=== PATIENT | female | born 1935 | race Two or more races ===

== ENCOUNTER 2022-07-13 22:29 | Inpatient (IN) | payer MEDICARE ==
[2022-07-14 01:33] VITALS: BMI 20.7
[2022-07-14] MEDS ORDERED: TETANUS, DIPHTHERIA TOX,ADULT (TDVAX) 0.5 ML VIAL IM ONE (01:47)
[2022-07-14] MEDS ORDERED: hydrALAZINE 20 MG/ML VIAL SLOW IVP PRN (01:47)
[2022-07-14] MEDS ORDERED: Ondansetron PF 4 MG/2 ML Vial IVP PRN (01:47)
[2022-07-14] MEDS ORDERED: Cyclobenzaprine 10 MG TAB PO PRN (01:49)
[2022-07-14] MEDS ORDERED: Morphine 4 MG/ML VIAL SLOW IVP PRN ×2 (02:03→19:30)
[2022-07-14] MEDS: Sodium Chloride 0.9% 1,000 ML IV SCH ×2 (02:27→17:41)
[2022-07-14] MEDS: Acetaminophen 500 MG TAB PO SCH ×4 (02:27→21:53)
[2022-07-14 03:41] LABS: SARS-CoV-2 NAA Rapid Test Not Detected (NotDetected)
[2022-07-14 06:35] LABS: #Eosinphils 0.1 thou/uL (0.0-0.7); #Lymphocytes 1.7 thou/uL (1.20-3.40); #Monocytes 0.6 thou/uL (0.11-0.59); #Neutrophils 7.4 thou/uL (1.40-6.50); %Basophils 0.4 % (0.0-1.0); %Eosinophils 1.2 % (0.0-10.0); %Lymphocytes 17.5 % (21.0-51.0); %Monocytes 6.3 % (0.0-10.0); %Neutrophils 74.6 % (42.0-75.0); Hemoglobin 13.1 g/dL (12.0-16.0); Mean Corpuscular HGB CONC 32.5 g/dL (32.0-36.0); Mean Corpuscular Hemoglobin 31.2 pg (27.0-31.0); Mean Corpuscular Volume 95.9 fl (78.0-98.0); Mean Platelet Volume 9.6 fL (7.4-10.4); Platelet Count 119 10x3/uL (130-400); RBC Distribution Width 11.9 % (11.5-14.5); Red Blood Cell (RBC) Count 4.21 mill/uL (4.20-5.40); White Blood Cell (WBC) Count 9.9 10x3/uL (4.8-10.8)
[2022-07-14 06:43] LABS: Anion Gap 11 mmol/L (10-20); BUN (Urea Nitrogen) 14 mg/dL (9.8-20.1); Calc. Creatinine Clearance 44 mL/min (70-130); Calcium 8.4 mg/dL (7.8-10.44); Carbon Dioxide 26 mmol/L (23-31); Chloride 102 mmol/L (98-107); Estimated GFR 80; Glucose 90 mg/dL (83-110); PTT 26.5 sec (22.9-36.1); Prothrombin Time 13.4 sec (12.0-14.7); Sodium 135 mmol/L (136-145)
[2022-07-14 06:49] LABS: Phosphorus 3.5 mg/dL (2.3-4.7)
[2022-07-14] MEDS ORDERED: CEFAZOLIN 2 GM in Sodium Chloride 0.9% 100 ML IVPB SCH (07:30)
[2022-07-14] MEDS ORDERED: Famotidine/PF 20 mg/2ml Vial SLOW IVP SCH (09:00)
[2022-07-14] MEDS ORDERED: Senokot S 8.6-50 MG TAB PO SCH ×2 (09:00→19:45)
[2022-07-14] MEDS: Polyethylene Glycol 3350 17 GM Packet PO SCH (10:08)
[2022-07-14] MEDS ORDERED: fentaNYL PF 100 MCG/2 ML SYRINGE ONE (17:40)
[2022-07-14] MEDS ORDERED: CEFAZOLIN 2 GM VIAL ONE (17:49)
[2022-07-14] MEDS ORDERED: Sodium Chloride 0.9% 100 ML ONE (17:49)
[2022-07-14] MEDS ORDERED: PROPOFOL 200 MG/20 ML VIAL ONE (18:00)
[2022-07-14] MEDS ORDERED: GLYCOPYRROLATE/PF 0.2 MG/ML VIAL ONE (18:00)
[2022-07-14] MEDS ORDERED: ePHEDrine 50 MG/ML VIAL ONE (18:00)
[2022-07-14] MEDS ORDERED: NEOSTIGMINE 3 MG/3 ML SYR 3 MG/3 ML SYRINGE ONE (18:00)
[2022-07-14] MEDS ORDERED: Rocuronium Bromide 10 MG/ML (10ML VIAL) ONE (18:00)
[2022-07-14] MEDS ORDERED: Ondansetron PF 4 MG/2 ML Vial ONE ×2 (18:00→20:36)
[2022-07-14] MEDS ORDERED: Dexamethasone 20 MG/5 ML VIAL ONE (18:00)
[2022-07-14] MEDS ORDERED: Promethazine HCl 25 MG/ML VIAL IM PRN (19:11)
[2022-07-14] MEDS ORDERED: Promethazine HCl 25 MG/ML VIAL IVPB PRN (19:11)
[2022-07-14] MEDS ORDERED: Ondansetron HCl/PF 4 MG/2 ML Vial IVP PRN (19:11)
[2022-07-14] MEDS ORDERED: hydrALAZINE 20 MG/ML VIAL ONE (19:14)
[2022-07-14] MEDS ORDERED: FENTANYL 50 MCG/ML 1 ML VIAL ONE (19:14)
[2022-07-14] MEDS ORDERED: traMADol HCl 50 MG TAB PO SCH (20:00)
[2022-07-14] MEDS: Senokot S 8.6-50 MG TAB PO SCH (21:53)
[2022-07-14] MEDS: traMADol HCl 50 MG TAB PO SCH (23:36)
[2022-07-15] MEDS: CEFAZOLIN 2 GM in Sodium Chloride 0.9% 100 ML IVPB SCH ×2 (02:58→09:21)
[2022-07-15] MEDS: Acetaminophen 500 MG TAB PO SCH ×5 (03:01→20:46)
[2022-07-15] MEDS: traMADol HCl 50 MG TAB PO SCH (05:27)
[2022-07-15 05:50] LABS: #Lymphocytes 0.5 thou/uL (1.20-3.40); #Monocytes 0.5 thou/uL (0.11-0.59); #Neutrophils 9.8 thou/uL (1.40-6.50); %Eosinophils 0.1 % (0.0-10.0); %Lymphocytes 4.8 % (21.0-51.0); %Monocytes 4.7 % (0.0-10.0); %Neutrophils 90.3 % (42.0-75.0); Hemoglobin 12.9 g/dL (12.0-16.0); Mean Corpuscular HGB CONC 32.6 g/dL (32.0-36.0); Mean Corpuscular Hemoglobin 31.6 pg (27.0-31.0); Mean Corpuscular Volume 96.8 fl (78.0-98.0); Mean Platelet Volume 10.3 fL (7.4-10.4); Platelet Count 120 10x3/uL (130-400); RBC Distribution Width 12.1 % (11.5-14.5); Red Blood Cell (RBC) Count 4.09 mill/uL (4.20-5.40); White Blood Cell (WBC) Count 10.8 10x3/uL (4.8-10.8)
[2022-07-15 06:26] LABS: ALT (SGPT) 11 U/L (8-55); AST (SGOT) 21 U/L (5-34); Albumin 3.6 g/dL (3.4-4.8); Alkaline Phosphatase 61 U/L (40-110); Anion Gap 14 mmol/L (10-20); BUN (Urea Nitrogen) 14 mg/dL (9.8-20.1); Bilirubin, Total 0.6 mg/dL (0.2-1.2); Calc. Creatinine Clearance 34 mL/min (70-130); Calcium 8.5 mg/dL (7.8-10.44); Carbon Dioxide 23 mmol/L (23-31); Chloride 103 mmol/L (98-107); Estimated GFR 60; Globulin 2.6 g/dL (2.4-3.5); Glucose 120 mg/dL (83-110); Phosphorus 4.3 mg/dL (2.3-4.7); Potassium 4.2 mmol/L (3.5-5.1); Protein, Total 6.2 g/dL (5.8-8.1); Sodium 136 mmol/L (136-145)
[2022-07-15] MEDS: Polyethylene Glycol 3350 17 GM Packet PO SCH (09:20)
[2022-07-15] MEDS: Aspirin 81 mg Enteric Coated Tablet PO SCH ×2 (09:22→20:45)
[2022-07-15] MEDS: Amlodipine 5 MG TAB PO SCH (09:22)
[2022-07-15] MEDS: Senokot S 8.6-50 MG TAB PO SCH ×2 (09:22→20:46)
[2022-07-15] MEDS: traMADol HCl 50 MG TAB PO PRN (20:42)
[2022-07-16] MEDS: Acetaminophen 500 MG TAB PO SCH ×2 (04:17→08:21)
[2022-07-16 06:10] LABS: #Eosinphils 0.4 thou/uL (0.0-0.7); #Lymphocytes 1.7 thou/uL (1.20-3.40); #Monocytes 0.4 thou/uL (0.11-0.59); #Neutrophils 3.7 thou/uL (1.40-6.50); %Basophils 0.2 % (0.0-1.0); %Eosinophils 5.7 % (0.0-10.0); %Lymphocytes 27.8 % (21.0-51.0); %Monocytes 6.5 % (0.0-10.0); %Neutrophils 59.9 % (42.0-75.0); Hemoglobin 11.2 g/dL (12.0-16.0); Mean Corpuscular HGB CONC 33.4 g/dL (32.0-36.0); Mean Corpuscular Hemoglobin 32.5 pg (27.0-31.0); Mean Corpuscular Volume 97.3 fl (78.0-98.0); Mean Platelet Volume 9.2 fL (7.4-10.4); Platelet Count 103 10x3/uL (130-400); RBC Distribution Width 11.9 % (11.5-14.5); Red Blood Cell (RBC) Count 3.44 mill/uL (4.20-5.40); White Blood Cell (WBC) Count 6.2 10x3/uL (4.8-10.8)
[2022-07-16 06:21] LABS: Anion Gap 10 mmol/L (10-20); BUN (Urea Nitrogen) 19 mg/dL (9.8-20.1); Calc. Creatinine Clearance 43 mL/min (70-130); Calcium 8.5 mg/dL (7.8-10.44); Carbon Dioxide 26 mmol/L (23-31); Chloride 103 mmol/L (98-107); Estimated GFR 78; Glucose 90 mg/dL (83-110); Potassium 3.8 mmol/L (3.5-5.1); Sodium 135 mmol/L (136-145)
[2022-07-16] MEDS: Senokot S 8.6-50 MG TAB PO SCH (08:21)
[2022-07-16] MEDS: Amlodipine 5 MG TAB PO SCH (08:21)
[2022-07-16] MEDS: Aspirin 81 mg Enteric Coated Tablet PO SCH (08:21)
[2022-07-16] MEDS ORDERED: Sodium Phosphate 30 MMOL in Sodium Chloride 0.9% 250 ML 250 ML IVPB SCH (09:00)
[2022-07-16] MEDS ORDERED: Potassium Chloride 20 MEQ TAB PO SCH (10:00)
[2022-07-16] MEDS: traMADol HCl 50 MG TAB PO PRN (11:20)
[2022-07-16] MEDS: Polyethylene Glycol 3350 17 GM Packet PO SCH (11:22)
[2022-07-16 12:51] VITALS: BP 138/74; TEMP 98.1
[2022-07-17] MEDS ORDERED: FLU VACC QS2022-23(65YR UP)/PF 240 MCG/0.7 ML SYRINGE IM ONE (09:00)
== END 2022-07-16 15:03 | DRG 522 ==
LOC: SJJU 22:29
PROVIDERS: ADMIT Surgery; ATTEND Surgery
PROC: 0SRS01A Replacement of Left Hip Joint, Femoral Surface with Metal Synthetic Substitute, Uncemented, Open Approach (ICD-10-PCS; principal; 2022-07-14)
DX: S72.002A Fracture of unspecified part of neck of left femur, initial encounter for closed fracture (principal); F03.90 Unspecified dementia, unspecified severity, without behavioral disturbance, psychotic disturbance, mood disturbance, and anxiety; D69.6 Thrombocytopenia, unspecified; W18.30XA Fall on same level, unspecified, initial encounter; I10 Essential (primary) hypertension; Z86.73 Personal history of transient ischemic attack (TIA), and cerebral infarction without residual deficits; Z79.899 Other long term (current) drug therapy; Z20.822 Contact with and (suspected) exposure to COVID-19
CPT/HCPCS: 36415; 72170; 80048; 80053; 83735; 84100; 85025; 85610; 85730; 90714; C1713; C1776; J0360; J1100; J2270; J2405; J2704; J3010; J3490; J7050; S0028; U0002